=== PATIENT | male | born 1970 | race Caucasian/White ===

== ENCOUNTER 2016-10-30 00:35 | Inpatient (IN) | payer MEDICARE ==
[~2016-10-30] VITALS: Ht 182.9 cm; Wt 87.7 kg
[2016-10-30] MEDS ORDERED: PROMETHAZINE 25 MG/ML, 1ML IM PRN (01:30)
[2016-10-30] MEDS ORDERED: LORazepam 2 MG/ML, 1ML IVPush PRN (01:30)
[2016-10-30] MEDS: ONDANSETRON 2MG/ML, 2ML IVPush PRN ×2 (01:48→08:46)
[2016-10-30 01:49] VITALS: BP 114/71
[2016-10-30] MEDS ORDERED: PLEASE ENTER ALLERGIES MC SCH ×2 (02:00)
[2016-10-30] MEDS ORDERED: PLEASE ENTER HEIGHT AND WEIGHT MC SCH (02:00)
[2016-10-30] MEDS: ENOXAPARIN 40 MG/0.4 ML SQ SCH (02:07)
[2016-10-30] MEDS: SODIUM CHLORIDE 0.9% 1,000 ML IV SCH ×3 (02:07→20:18)
[2016-10-30 04:52] LABS: HEMATOCRIT 44.4 % (39.2-51.8); WHITE BLOOD COUNT 7.5 x10^3/uL (3.4-10)
[2016-10-30 05:23] LABS: ASPARTATE AMINO TRANSFERASE 13 U/L (15-37); BLOOD UREA NITROGEN 11 mg/dL (7-18)
[2016-10-30 08:05] VITALS: BP 97/60
[2016-10-30] MEDS: DIVALPROEX 500 MG TAB.ER.24H PO SCH ×2 (08:46→20:18)
[2016-10-30] MEDS: CARBAMAZEPINE 200 MG TABLET PO SCH ×2 (08:47→20:18)
[2016-10-30] MEDS ORDERED: PHENOBARBITAL 20 MG/5 ML ORAL SOL PO SCH (09:00)
[2016-10-30 14:42] VITALS: BP 152/99
[2016-10-30 14:44] VITALS: BP 124/83
[2016-10-30 17:45] LABS: PATH.CAST-FLAG NOT PRESENT; SPERM-FLAG NOT PRESENT; SRC-FLAG NOT PRESENT; XTAL-FLAG NOT PRESENT; YLC-FLAG NOT PRESENT
[2016-10-30 19:11] VITALS: BP 118/74
[2016-10-30] MEDS: ZONISAMIDE 50 MG CAPSULE PO SCH (20:18)
[2016-10-30] MEDS ORDERED: PHENOBARBITAL 30 MG TABLET PO SCH (21:00)
[2016-10-30] MEDS: PHENOBARBITAL 100 MG TABLET PO SCH (21:00)
[2016-10-31 00:56] VITALS: BP 130/86
[2016-10-31] MEDS: ENOXAPARIN 40 MG/0.4 ML SQ SCH (02:01)
[2016-10-31] MEDS: SODIUM CHLORIDE 0.9% 1,000 ML IV SCH ×3 (02:02→22:27)
[2016-10-31 08:22] VITALS: BP 129/95
[2016-10-31] MEDS: CARBAMAZEPINE 200 MG TABLET PO SCH ×2 (09:35→20:15)
[2016-10-31] MEDS: DIVALPROEX 500 MG TAB.ER.24H PO SCH ×2 (09:36→20:15)
[2016-10-31] MEDS: PHENOBARBITAL 30 MG TABLET PO SCH (09:36)
[2016-10-31 14:00] VITALS: BP 122/80
[2016-10-31 18:29] VITALS: BP 121/76
[2016-10-31] MEDS: ZONISAMIDE 50 MG CAPSULE PO SCH (20:15)
[2016-10-31] MEDS: PHENOBARBITAL 100 MG TABLET PO SCH (20:15)
[2016-11-01 03:42] VITALS: BP 118/75
[2016-11-01] MEDS: ENOXAPARIN 40 MG/0.4 ML SQ SCH (03:46)
[2016-11-01] MEDS: SODIUM CHLORIDE 0.9% 1,000 ML IV SCH ×3 (05:56→21:47)
[2016-11-01 09:13] VITALS: BP 134/82
[2016-11-01] MEDS: CARBAMAZEPINE 200 MG TABLET PO SCH ×2 (09:21→20:48)
[2016-11-01] MEDS: PHENOBARBITAL 30 MG TABLET PO SCH (09:21)
[2016-11-01] MEDS: DIVALPROEX 500 MG TAB.ER.24H PO SCH ×2 (09:21→20:48)
[2016-11-01 14:14] VITALS: BP 121/82
[2016-11-01 20:40] VITALS: BP 137/84
[2016-11-01] MEDS: PHENOBARBITAL 100 MG TABLET PO SCH (20:49)
[2016-11-01] MEDS: ZONISAMIDE 50 MG CAPSULE PO SCH (20:49)
[2016-11-01] MEDS ORDERED: QUETIAPINE 100MG TABLET PO SCH (21:00)
[2016-11-02 03:05] VITALS: BP 109/67
[2016-11-02] MEDS: ENOXAPARIN 40 MG/0.4 ML SQ SCH (03:51)
[2016-11-02] MEDS: SODIUM CHLORIDE 0.9% 1,000 ML IV SCH (05:05)
[2016-11-02 08:46] VITALS: BP 117/75
[2016-11-02] MEDS: PHENOBARBITAL 30 MG TABLET PO SCH (10:34)
[2016-11-02] MEDS: CARBAMAZEPINE 200 MG TABLET PO SCH ×2 (10:34→20:30)
[2016-11-02] MEDS: DIVALPROEX 500 MG TAB.ER.24H PO SCH ×2 (10:34→20:30)
[2016-11-02 12:51] VITALS: BP 118/71
[2016-11-02 18:31] VITALS: BP 146/87
[2016-11-02] MEDS: PHENOBARBITAL 100 MG TABLET PO SCH (20:30)
[2016-11-02] MEDS: ZONISAMIDE 50 MG CAPSULE PO SCH (20:31)
[2016-11-02] MEDS ORDERED: QUETIAPINE 100MG TABLET PO SCH (21:00)
[2016-11-03 03:50] VITALS: BP 99/60
[2016-11-03] MEDS: ENOXAPARIN 40 MG/0.4 ML SQ SCH (05:00)
[2016-11-03 06:56] VITALS: BP 118/74
[2016-11-03] MEDS: DIVALPROEX 500 MG TAB.ER.24H PO SCH (09:30)
[2016-11-03] MEDS: CARBAMAZEPINE 200 MG TABLET PO SCH (09:30)
[2016-11-03] MEDS: PHENOBARBITAL 30 MG TABLET PO SCH (09:39)
[2016-11-03] MEDS ORDERED: PHENOBARBITAL 30 MG TABLET PO ONE (13:30)
[2016-11-03 14:40] VITALS: BP 134/78
[2016-11-03] MEDS ORDERED: QUET100T PO ×2 (15:37→15:58)
== END 2016-11-03 17:08 | disposition home or self-care (01) | DRG 101 ==
LOC: 3NW 00:35 → 3NE 11-02 12:14
PROVIDERS: ADMIT Hospitalist; ATTEND Hospitalist
DX: G40.409 Other generalized epilepsy and epileptic syndromes, not intractable, without status epilepticus (principal); R45.851 Suicidal ideations; F31.81 Bipolar II disorder; M19.90 Unspecified osteoarthritis, unspecified site; W10.9XXA Fall (on) (from) unspecified stairs and steps, initial encounter; E11.9 Type 2 diabetes mellitus without complications; F41.9 Anxiety disorder, unspecified; Z81.8 Family history of other mental and behavioral disorders; Z82.3 Family history of stroke; Z86.61 Personal history of infections of the central nervous system; Z87.891 Personal history of nicotine dependence; Z88.6 Allergy status to analgesic agent; Z88.8 Allergy status to other drugs, medicaments and biological substances; M25.562 Pain in left knee
CPT/HCPCS: 36415; 80053; 81001; 82607; 84443; 85025; 87086; 87324; 95812; J1650; J2405; J2060; J7030